=== PATIENT | male | born 1960 | race Caucasian/White ===

== ENCOUNTER 2022-05-27 08:28 | Day surgery (SDC) | payer OTHER ==
[2022-05-27] MEDS ORDERED: Labetalol 100 MG/20 ML MDV IV ONE (08:29)
[2022-05-27] MEDS ORDERED: Propofol 200 MG/20 ML SDV IV ONE (08:29)
[2022-05-27] MEDS ORDERED: Sodium Chloride 0.9% 10 ML Syringe FLUSH PRN (08:30)
[2022-05-27] MEDS ORDERED: Lactated Ringers 1,000 ML IV SCH (08:30)
== END 2022-05-27 10:50 | disposition home or self-care (01) ==
LOC: FB.SDS 08:28
PROVIDERS: ATTEND Surgery
DX: Z12.11 Encounter for screening for malignant neoplasm of colon (principal); K57.30 Diverticulosis of large intestine without perforation or abscess without bleeding; F41.9 Anxiety disorder, unspecified; F32.A Depression, unspecified; E78.5 Hyperlipidemia, unspecified; F17.210 Nicotine dependence, cigarettes, uncomplicated; Z88.0 Allergy status to penicillin; Z79.899 Other long term (current) drug therapy; Z98.890 Other specified postprocedural states
CPT/HCPCS: 45378; J2704; J3490; J7120; 00812-QZ